=== PATIENT | male | born 1960 | race Caucasian/White ===

== ENCOUNTER → 2016-06-09 | Outpatient (CLI) | payer OTHER | LOC: RAD 08:18 | DX: M54.42 Lumbago with sciatica, left side (principal); M54.41 Lumbago with sciatica, right side; G89.29 Other chronic pain; M47.816 Spondylosis without myelopathy or radiculopathy, lumbar region | CPT/HCPCS: 72100 ==

== ENCOUNTER → 2016-10-18 | Outpatient (CLI) | payer OTHER | LOC: RAD 07:34 | DX: M51.36 Other intervertebral disc degeneration, lumbar region (principal); M47.896 Other spondylosis, lumbar region | CPT/HCPCS: 72110 ==

== ENCOUNTER → 2020-03-11 | Outpatient (CLI) | payer MEDICARE, OTHER ==
[~2020-03-11] MED LIST: ANUSOL HC SUPP1 SUPP PR; CELEBREX 200MG200 MG PO; CRESTOR20 MG PO; NORCO 10-325 T1 EACH PO; NORCO 7.5-3251 EACH PO; NORVASC10 MG PO; PLAVIX 75 MG TA75 MG PO; PRINIVIL10 MG PO; PROTONIX 20 MG20 MG PO; PROZAC 20 MG CA20 MG GT; VENTOLIN HFA 66.7 GM INH; Voltaren Gel 1 % TOP
[2020-03-11 08:28] LABS: BUN/CREATININE RATIO 12 (0-10)
[2020-03-13 12:14] LABS: CHOLESTEROL, TOTAL 155 mg/dL (100-199); HDL SIZE 8.5 nm (>=9.2); HDL-C 31 mg/dL (>39); HDL-P (TOTAL) 27.6 umol/L (>=30.5); LARGE HDL-P 1.9 umol/L (>=4.8); LDL-C 90 mg/dL (0-99); LDL-P 1260 nmol/L (<1000); LP-IR SCORE 89 (<=45); SMALL LDL-P 864 nmol/L (<=527); TRIGLYCERIDES 198 mg/dL (0-149); VLDL SIZE 56.5 nm (<=46.6)
== END ==
LOC: LAB 07:31
PROVIDERS: Emergency Medicine
DX: E11.9 Type 2 diabetes mellitus without complications (principal); E78.2 Mixed hyperlipidemia; F41.1 Generalized anxiety disorder; F52.21 Male erectile disorder; G89.4 Chronic pain syndrome; H90.3 Sensorineural hearing loss, bilateral; H93.13 Tinnitus, bilateral; I10 Essential (primary) hypertension; I25.111 Atherosclerotic heart disease of native coronary artery with angina pectoris with documented spasm; J20.9 Acute bronchitis, unspecified; J43.8 Other emphysema; K21.9 Gastro-esophageal reflux disease without esophagitis; L08.9 Local infection of the skin and subcutaneous tissue, unspecified; M51.36 Other intervertebral disc degeneration, lumbar region; M54.12 Radiculopathy, cervical region; M77.11 Lateral epicondylitis, right elbow; M77.12 Lateral epicondylitis, left elbow; R10.12 Left upper quadrant pain; R10.13 Epigastric pain; R35.1 Nocturia; Z12.5 Encounter for screening for malignant neoplasm of prostate
CPT/HCPCS: 36415; 80053; 84550

== ENCOUNTER → 2020-07-27 | Outpatient (CLI) | payer MEDICARE, OTHER | LOC: KOH-I 12:48 | DX: M15.8 Other polyosteoarthritis (principal) | CPT/HCPCS: 73502; 73564 ==

== ENCOUNTER 2020-10-15 11:37 | Emergency (ER) | payer MEDICARE, OTHER | END 2020-10-15 11:42 | disposition home or self-care (01) | LOC: ER1 11:37 | DX: Z23 Encounter for immunization (principal); U07.1 COVID-19; E78.5 Hyperlipidemia, unspecified; F17.200 Nicotine dependence, unspecified, uncomplicated; I10 Essential (primary) hypertension; Z90.89 Acquired absence of other organs | CPT/HCPCS: 99283; M0243 ==

== ENCOUNTER → 2021-02-28 | Outpatient (CLI) | payer MEDICARE, OTHER ==
[2021-02-28 05:21] LABS: HEMOGLOBIN 16.4 gm/dl (14.0-17.5); RED BLOOD COUNT 5.03 M/UL (4.20-5.50)
[2021-02-28 05:41] LABS: BUN/CREATININE RATIO 20 (0-10)
== END ==
LOC: LAB 04:51
PROVIDERS: Emergency Medicine
DX: E11.9 Type 2 diabetes mellitus without complications (principal); I10 Essential (primary) hypertension; E78.2 Mixed hyperlipidemia
CPT/HCPCS: 80053; 80061; 84443; 84550; 85025; G0103

== ENCOUNTER → 2021-05-04 | Outpatient (CLI) | payer MEDICARE, OTHER | LOC: RAD 18:04 | DX: J20.9 Acute bronchitis, unspecified (principal); R06.02 Shortness of breath | CPT/HCPCS: 71046 ==

== ENCOUNTER → 2021-05-25 | Outpatient (CLI) | payer MEDICARE, OTHER | LOC: MRI 13:44 | DX: M19.072 Primary osteoarthritis, left ankle and foot (principal); G57.52 Tarsal tunnel syndrome, left lower limb | CPT/HCPCS: 73718 ==